=== PATIENT | female | born 1950 | race Caucasian/White ===

== ENCOUNTER 2019-10-11 10:39 | Inpatient (IN) | payer OTHER ==
[2019-10-11] VITALS (12 sets, daily range): BP systolic 115–154; BP diastolic 53–94
[~2019-10-11] VITALS: Ht 165.1 cm; Wt 86.2 kg
--- NOTE | 2019-10-11 11:00 | NUR ---
Normal Saline started at 100 ml/hr per towel hemmer Dr. Bowman.
[2019-10-11] MEDS ORDERED: SODIUM CHLORIDE 0.9% 1000ML 1,000 ML ONE ×3 (11:05→11:23)
--- NOTE | 2019-10-11 11:06 | NUR ---
325MG OF ASPIRIN GIVEN PER DR. COLEMAN
[2019-10-11] MEDS ORDERED: ASPIRIN 81 MG CHEW TAB ONE (11:07)
--- NOTE | 2019-10-11 11:07 | NUR ---
CELL PHONE/GLASSES IN PURSE
--- NOTE | 2019-10-11 11:10 | NUR ---
Blank consent printed and placed on chart
--- NOTE | 2019-10-11 11:10 | NUR ---
clients cell phone and glasses in client purse, personal shoes and clothing placed in belongings bag and sent with patient to laboratory manager.
--- NOTE | 2019-10-11 11:13 | NUR ---
slab polisher RN at bedside
[2019-10-11] MEDS ORDERED: HEPARIN SOD (PORCINE) 1000 UNIT/ML 30ML ONE (11:16)
[2019-10-11] MEDS ORDERED: MIDAZOLAM HCL 2 MG/2 ML VIAL ONE (11:16)
[2019-10-11] MEDS ORDERED: VERAPAMIL HCL 2.5 MG/ML 2 ML VIAL ONE (11:16)
[2019-10-11] MEDS ORDERED: IOPAMIDOL 370 MG/ML 200 ML INFUS..BTL INJ ONE (11:17)
[2019-10-11] MEDS ORDERED: LIDOCAINE HCL 2% LOCAL 20 ML VIAL ONE (11:17)
[2019-10-11] MEDS ORDERED: FENTANYL CITRATE/PF 100MCG/2 ML INJ ONE (11:17)
[2019-10-11] MEDS ORDERED: HEPARIN SOD/SOD CHLORIDE 2,000 ML ONE (11:17)
[2019-10-11 11:18] LABS: BASOPHILS % 0.4 % (0.0-1.0); EOSINOPHILS % 0.4 % (0.0-6.0); HEMATOCRIT 40.2 % (34.2-44.1); HEMOGLOBIN 14.3 g/dL (12.0-16.0); LYMPHOCYTES # (AUTO) 1.6 (1.0-3.2); LYMPHOCYTES % 14.3 % (18.0-39.1); MEAN CORPUSCULAR HEMOGLOBIN 30.2 pg (28-32); MEAN CORPUSCULAR HGB CONC 35.6 g/dL (31-35); MONOCYTES # (AUTO) 0.5 (0.2-0.8); MONOCYTES % 4.4 % (4.4-11.3); NEUTROPHILS # (AUTO) 8.7 (2.1-6.9); NEUTROPHILS % 79.9 % (38.7-80.0); PLATELET COUNT 266 x10e3/uL (140-360); RED BLOOD COUNT 4.73 x10e6/uL (3.6-5.1); RED CELL DISTRIBUTION WIDTH 13.2 % (11.7-14.4)
[2019-10-11] MEDS ORDERED: NITROGLYCERIN/D5W 200 MCG/ML 250 ML ONE (11:18)
[2019-10-11] MEDS ORDERED: SODIUM CHLORIDE 0.9% 50ML 50 ML ONE (11:21)
[2019-10-11] MEDS ORDERED: BIVALRIUDIN 250 MG/VIAL VIAL IV ONE (11:21)
--- NOTE | 2019-10-11 11:32 | Diagnostic Imaging Report ---
EXAMINATION: CHEST SINGLE (PORTABLE) INDICATION: Chest pain COMPARISON: None FINDINGS: LINES/TUBES:EKG leads overlie the chest. LUNGS:The lungs are well-inflated. No focal consolidation or pulmonary edema. PLEURA:No pleural effusion or pneumothorax. MEDIASTINUM:The cardiomediastinal silhouette appears normal in size and shape. BONES/SOFT TISSUES:No acute osseous injury. ABDOMEN:No free air under the diaphragm. IMPRESSION: No focal pneumonia or pulmonary edema. Signed by: Uri Miranda MD on 10/11/2019 11:29 AM
--- NOTE | 2019-10-11 11:44 | NUR ---
pt transported via stretcher to quality assurance lab technician.
[2019-10-11 11:53] LABS: ALANINE AMINOTRANSFERASE 39 IU/L (0-55); ALBUMIN 4.3 g/dL (3.5-5.0); ALBUMIN/GLOBULIN RATIO 1.3 (0.8-2.0); ALKALINE PHOSPHATASE 69 IU/L (40-150); BLOOD UREA NITROGEN 14 mg/dL (7-26); BUN/CREATININE RATIO 16 (6-25); CALCIUM 9.8 mg/dL (8.4-10.2); CARBON DIOXIDE 26 mmol/L (22-29); CHLORIDE 101 mmol/L (98-107); CREATINE KINASE 53 IU/L (29-168); EST GLOMERULAR FILTRATION RATE > 60 ML/MIN (60-); GLUCOSE 264 mg/dL (74-118); SODIUM 137 mmol/L (136-145)
[2019-10-11] MEDS ORDERED: EPTIFIBATIDE 20 ML ONE (12:00)
[2019-10-11] MEDS ORDERED: EPTIFIBATIDE 75mg 100ML 100 ML ONE (12:01)
[2019-10-11] MEDS ORDERED: CLOPIDOGREL BISULFATE 75 MG TAB ONE (12:03)
[2019-10-11] MEDS ORDERED: HYDRALAZINE HCL 20 MG/ML VIAL ONE (12:15)
[2019-10-11] MEDS ORDERED: CEFAZOLIN SOD 2 GM/D5W 50ML 50 ML IV ONE (12:36)
[2019-10-11] MEDS: EPTIFIBATIDE 75mg 100ML 100 ML IV SCH ×2 (13:00→19:09)
[2019-10-11] MEDS ORDERED: METOCLOPRAMIDE HCL 10 MG/2ML VIAL ONE (13:02)
[2019-10-11] MEDS ORDERED: METOCLOPRAMIDE HCL 10 MG/2ML VIAL IV PRN ×2 (14:45→15:00)
[2019-10-11] MEDS ORDERED: DEXTROSE 50% SYRINGE 50 ML IV PRN (14:45)
[2019-10-11] MEDS ORDERED: HYDRALAZINE HCL 20 MG/ML VIAL IV PRN (14:45)
[2019-10-11] MEDS: SODIUM CHLORIDE 0.9% 1000ML 1,000 ML IV SCH ×2 (15:16→20:59)
[2019-10-11] MEDS ORDERED: ASPIRIN 81 MG CHEW TAB PO ONE (15:30)
[2019-10-11] MEDS: ASPIRIN 81 MG ENTERIC COATED PO SCH (15:30)
[2019-10-11] MEDS ORDERED: CLOPIDOGREL BISULFATE 75 MG TAB PO ONE (15:30)
[2019-10-11] MEDS: INSULIN REGULAR, HUMAN 100 UNIT/1 ML 3ML VIAL SQ SCH ×2 (16:45→21:09)
[2019-10-11] MEDS: METOPROLOL TARTRATE 25 MG TAB PO SCH (17:00)
[2019-10-11] MEDS: LOSARTAN POTASSIUM 25 MG TAB PO SCH (17:00)
--- NOTE | 2019-10-11 17:00 | Operative Report ---
DATE OF PROCEDURE: SURGEON: Gely Andres MD TITLE OF THE PROCEDURE: 1. Left cardiac catheterization. 2. PCI and stenting of the LAD diagonal artery. 3. PCI and stenting of the circumflex coronary artery. INDICATIONS: Acute lateral ST-elevation myocardial infarction. TECHNICAL DETAILS: The patient is seen in ER. First EKG done at 10:45. A STEMI called at 11. The patient was taken to the cardiac labor conciliator, was ready at 11:36. The reason for delay because the patient's unknown COVID status and to preparation and having appropriate protective equipment. Case started at 11:36. The patient, after draping procedure, she was given Versed and fentanyl for sedation, local xylocaine for local anesthesia. A 4-Sammarinese sheath was established in place, Ryan left 4 and 3DRC catheter to engage the coronaries. A decision was made to proceed with intervention. The existing 4-Sammarinese sheath was exchanged to 6-Sammarinese sheath. Guiding catheter was XB LAD 3. The diagonal lesion was crossed, ballooned and stented. laborer starch factory table to balloon time only 21 minutes. The balloon time was 11:57. Then, after that stent was placed in diagonal. Attention was shifted to the circumflex, which was very large artery supplying all the lateral wall with the same diagonal. There was critical lesion there and this successfully stented using 3 x 15 Resolute stent up to 15 atmospheres. Repeat angiogram showed excellent results. At that time, we checked ACT. The patient of course was given Angiomax, Integrilin in the usual dosage. ACT was therapeutic. Attention was made to do LV-gram. After the LV-gram, successful closure using VIP closure device was done. In between case, hydralazine given to control blood pressure. RESULTS: A. Coronary angiogram: 1. Left main short, mid 30% ostial lesion. 2. LAD bifid system with LAD and diagonal same size other than maybe LAD is bigger. There is 100% occlusion with just penetrating the lesion. There is 70% at the bifurcation of the LAD at the origin of the diagonal 70% to 80% lesion. 3. Circumflex coronary artery, very large, 30% ostial lesion, 95% body of circumflex giving very large 1st obtuse marginal and then giving 2nd obtuse marginal. 4. Right coronary artery 30% lesions were noted, 60% to 70% lesion of PDA. a. Hemodynamic: Aorta pressure 200/80. LV pressure 200/20. b. Left ventriculogram in the right anterior oblique view showed hypokinetic lateral segments, ejection fraction of 40% to 45%. PCI procedure guiding catheter 6-Sammarinese XB LAD 3, balloon is 2 x 15 balloon, stent 2.25 x 15 for the diagonal lesion prior to intervention at 100% with LILLIE zero following the intervention at 0% residual and LILLIE flow 3. The circumflex lesion 95% before intervention. Following intervention with 3 x 18 Resolute stent up to 15 atmosphere was 0% residual with LILLIE-3 flow. IMPRESSION: Severe two-vessel coronary artery disease with an acute ST-elevation myocardial infarction and severely ischemic, very large lateral wall successfully treated with the followin. PCI and stenting of the large diagonal bifid lesion using a 2 x 15 stent. 2. PCI and stenting of the circumflex coronary artery using 3 x 15 stent with good results. COMPLICATIONS: None. BLOOD LOSS: None. MD ALIYA Olivarez/ALEJA /[id number]
--- NOTE | 2019-10-11 18:10 | Consultation ---
DATE OF CONSULTATION: 10/11/2019 Pulmonary Critical Care Medicine Consult REASON FOR REFERRAL: Critical illness. HISTORY OF PRESENT ILLNESS: Ms. Odell is a pleasant 69-year-old female with critical illness state. The patient is seen and examined in the emergency room. The patient was having some debilitating shortness of breath. She was having some chest pains. Of note, the patient with some history of chest pains in a similar manner before. Usually, the pain will go away upon relaxation. However, today, the pains were worse ever. She came to emergency room. EKG demonstrated some ST elevations and contralateral depressions. The patient went to the emergent heart catheterization lab. The patient had two-vessel coronary artery disease that was noted with 40% to 45% LVEF. The patient proceeded to have two stents placed. The patient comes back to the ICU in critical condition. PAST MEDICAL HISTORY: Diabetes, hypertension, and hyperlipidemia. MEDICATIONS: Medication list per the chart record. Still limited right now. The patient states lot of her medicines run out recently. ALLERGIES: NO KNOWN DRUG ALLERGIES. SOCIAL HISTORY: No smoking. No drinking. No drugs. The patient is retired and she is former teacher. The patient lives with and son, who is 31 years old. has advancing Parkinson and is bedbound. REVIEW OF SYSTEMS: GENERAL: No weight changes. OPHTHALMOLOGIC: No floaters. ENT: No mouth ulcers. ENDOCRINE: No known thyroid disease. PULMONARY: No asthma. CARDIAC: No arrhythmias in the past. GI: No blood in vomiting. : No dysuria. HEMATOLOGIC: No blood dyscrasias. NEUROLOGIC: No seizures. PSYCHIATRIC: No depression. PHYSICAL EXAMINATION: VITAL SIGNS: Afebrile. Vital signs noted and reviewed per the chart record. Blood pressure 120/83. Heart rate 77. HEENT: Normocephalic and atraumatic. NECK: Supple. Throat midline. LUNGS: Bilateral air entry, limited, but clear. CARDIOVASCULAR: S1 and S2. No murmurs, rubs, or gallops. ABDOMEN: Soft and nontender. EXTREMITIES: No clubbing. No cyanosis. There is trace to no edema. INTEGUMENT: No rash. No purpura. The right groin entry site heart catheterization, minimally ecchymosis. LABORATORY DATA: 4.0 potassium, 14 BUN, 0.9 creatinine. 11 white count, 40 hematocrit, 266 platelets. IMPRESSION AND PLAN: 1. Acute ST-elevation myocardial infarction. 2. Postop stay, status post PCI of two-vessel coronary artery disease. 3. Diabetes. 4. Hypertension. 5. Hyperlipidemia. 6. History of medication/treatment nonadherence. 7. Mild acute systolic cardiomyopathy, 40-45% LVEF. 8. Emergency hypertension, 264/120 blood pressure on admit. Get slow steady control of blood pressure, but do not drop too rapidly, noting the patient with very high blood pressure coming. Get hyperglycemic control. Continue Integrilin for short term and follow up again with serial checks. Follow up serial vascular checks. The patient will remain on telemetry in ICU. Continue cardiac medicines per Cardiology. Thank you very much for this consult, Dr. Cunningham. Please call for questions. MD DONOVAN Alvarez/ALEJA /[id number] cc: Clinton Cm
--- NOTE | 2019-10-11 18:45 | Consultation ---
DATE OF CONSULTATION: Cardiac Consultation REASON FOR CONSULTATION: Urgent consultation for possibility of ST-elevation myocardial infarction. HISTORY OF PRESENT ILLNESS: A 69-year-old lady, poorly historian, followed by Dr. Cm, diabetic, hypertensive, does not take any medication. No major surgery. The patient in her usual status of health. Since yesterday, she is having severe chest pain. Today, it was more severe, associated with diaphoresis, nausea, vomiting, typical, acute myocardial infarction type of symptoms. The patient rushed to ER. The ER physician did her EKG. She was suspicious of problems. She called me, I was rounding. I came directly to ER and the patient there in severe pain. Her blood tests being drawn. The patient is extremely hypertensive with blood pressure 190/100. She is diaphoretic, cold, clammy, and she is having severe retrosternal chest pain radiating to her back. We initiated a STEMI call immediately activated. REVIEW OF SYSTEMS: GENERAL: No fever. No chills. No weight loss. No weight gain. HEENT: Blurry vision. PULMONARY AND CARDIAC: Exertional angina-like symptoms, easy fatigue with shortness of breath on exertion over the last few weeks. GI: Bloating, indigestion, nausea, and vomiting. The patient vomited twice before coming to ER. : Incontinence, increased frequency of urination. MUSCULOSKELETAL: Aches and pain. NEUROLOGICAL: Tingling and numbness. ENDOCRINE: The patient is diabetic of many years duration. SOCIAL HISTORY: She is . She is nonsmoker and non-alcohol drinker. HOME MEDICATIONS: The patient does not take any medication. ALLERGIES: NONE. PAST MEDICAL HISTORY: 1. Hypertension. 2. Diabetes mellitus. FAMILY HISTORY: Strongly positive for hypertension, diabetes mellitus, and coronary artery disease. PHYSICAL EXAMINATION: GENERAL: Obese lady, in acute distress. VITAL SIGNS: Blood pressure 190/100, heart rate of 90, respiratory rate 18, in acute distress. NECK: Elevation of jugular venous pulsation. CHEST: Bilateral crackles. HEART: 4th heart sound is audible. ABDOMEN: Soft. Bowel sounds are present. EXTREMITIES: Minimal trace edema. Chronic skin changes. NEUROLOGIC: Awake, alert, and oriented. IMPRESSION AND PLAN: Acute ST-elevation myocardial infarction based on EKG, lab drawn, a STEMI call is activated. MD ALIYA Olivarez/ALEJA /[id number]
[2019-10-11 20:45] LABS: BASOPHILS % 0.2 % (0.0-1.0); HEMATOCRIT 35.5 % (34.2-44.1); HEMOGLOBIN 12.9 g/dL (12.0-16.0); LYMPHOCYTES # (AUTO) 1.7 (1.0-3.2); LYMPHOCYTES % 13.3 % (18.0-39.1); MEAN CORPUSCULAR HEMOGLOBIN 30.6 pg (28-32); MEAN CORPUSCULAR HGB CONC 36.3 g/dL (31-35); MEAN CORPUSCULAR VOLUME 84.1 fL (81-99); MONOCYTES # (AUTO) 0.9 (0.2-0.8); NEUTROPHILS % 79.1 % (38.7-80.0); PLATELET COUNT 276 x10e3/uL (140-360); RED BLOOD COUNT 4.22 x10e6/uL (3.6-5.1); RED CELL DISTRIBUTION WIDTH 13.4 % (11.7-14.4)
[2019-10-11 21:08] LABS: ALANINE AMINOTRANSFERASE 48 IU/L (0-55); ALBUMIN 3.7 g/dL (3.5-5.0); ALBUMIN/GLOBULIN RATIO 1.3 (0.8-2.0); ALKALINE PHOSPHATASE 59 IU/L (40-150); ANION GAP 10.5 mmol/L (8-16); BLOOD UREA NITROGEN 11 mg/dL (7-26); BUN/CREATININE RATIO 15 (6-25); CALCIUM 8.8 mg/dL (8.4-10.2); CARBON DIOXIDE 24 mmol/L (22-29); CHLORIDE 104 mmol/L (98-107); CREATININE, SERUM 0.71 mg/dL (0.57-1.11); EST GLOMERULAR FILTRATION RATE > 60 ML/MIN (60-); GLUCOSE 167 mg/dL (74-118); POTASSIUM 3.5 mmol/L (3.5-5.1); SODIUM 135 mmol/L (136-145)
[2019-10-11] MEDS: ATORVASTATIN 40 MG TAB PO SCH (21:08)
[2019-10-12] VITALS (19 sets, daily range): BP systolic 96–157; BP diastolic 54–133
[2019-10-12 05:39] LABS: BASOPHILS % 0.3 % (0.0-1.0); EOSINOPHILS % 0.4 % (0.0-6.0); HEMOGLOBIN 12.7 g/dL (12.0-16.0); LYMPHOCYTES # (AUTO) 2.2 (1.0-3.2); LYMPHOCYTES % 19.7 % (18.0-39.1); MEAN CORPUSCULAR HEMOGLOBIN 30.2 pg (28-32); MEAN CORPUSCULAR HGB CONC 35.3 g/dL (31-35); MEAN CORPUSCULAR VOLUME 85.5 fL (81-99); MONOCYTES # (AUTO) 0.9 (0.2-0.8); MONOCYTES % 7.7 % (4.4-11.3); NEUTROPHILS % 71.6 % (38.7-80.0); PLATELET COUNT 269 x10e3/uL (140-360); RED BLOOD COUNT 4.21 x10e6/uL (3.6-5.1); RED CELL DISTRIBUTION WIDTH 13.7 % (11.7-14.4)
[2019-10-12 05:59] LABS: ALANINE AMINOTRANSFERASE 40 IU/L (0-55); ALBUMIN 3.5 g/dL (3.5-5.0); ALBUMIN/GLOBULIN RATIO 1.3 (0.8-2.0); ALKALINE PHOSPHATASE 55 IU/L (40-150); ANION GAP 9.4 mmol/L (8-16); BLOOD UREA NITROGEN 10 mg/dL (7-26); BUN/CREATININE RATIO 14 (6-25); CALCIUM 8.3 mg/dL (8.4-10.2); CARBON DIOXIDE 26 mmol/L (22-29); CHLORIDE 108 mmol/L (98-107); CREATININE, SERUM 0.69 mg/dL (0.57-1.11); EST GLOMERULAR FILTRATION RATE > 60 ML/MIN (60-); GLUCOSE 145 mg/dL (74-118); MAGNESIUM 1.7 MG/DL (1.3-2.1); PHOSPHORUS 2.7 MG/DL (2.3-4.7); POTASSIUM 3.4 mmol/L (3.5-5.1); SODIUM 140 mmol/L (136-145)
[2019-10-12 06:25] LABS: CHOL/HDL RATIO 3.3 (3.0-3.6)
--- NOTE | 2019-10-12 06:36 | Diagnostic Imaging Report ---
EXAMINATION: CHEST SINGLE (PORTABLE) INDICATION: CHF. COMPARISON: Chest radiograph 10/11/2019. FINDINGS: LINES/TUBES:EKG leads overlie the chest. LUNGS:The lungs are well-inflated. No focal consolidation or pulmonary edema. Central vascular congestion. PLEURA:No pleural effusion or pneumothorax. MEDIASTINUM:The cardiomediastinal silhouette appears unremarkable. BONES/SOFT TISSUES:No acute osseous injury. ABDOMEN:No free air under the diaphragm. IMPRESSION: Central vascular congestion without pulmonary edema. Signed by: Dr. Carmen Tafoya MD on 10/12/2019 6:32 AM
[2019-10-12] MEDS: INSULIN REGULAR, HUMAN 100 UNIT/1 ML 3ML VIAL SQ SCH ×4 (08:20→21:29)
[2019-10-12] MEDS ORDERED: POTASSIUM CHLORIDE 10MEQ EA PO ONE (09:55)
[2019-10-12] MEDS: ASPIRIN 81 MG ENTERIC COATED PO SCH (10:18)
[2019-10-12] MEDS: CLOPIDOGREL BISULFATE 75 MG TAB PO SCH (10:19)
[2019-10-12] MEDS: METOPROLOL TARTRATE 25 MG TAB PO SCH ×2 (10:25→17:46)
[2019-10-12] MEDS: LOSARTAN POTASSIUM 25 MG TAB PO SCH ×2 (10:25→17:46)
--- NOTE | 2019-10-12 10:33 | History and Physical ---
PRIMARY CARE PHYSICIAN: Dr. Clinton Cm. CONSULTANTS: 1. Dr. Gely Andres. 2. Dr. Aram Bustos, ICU. CHIEF COMPLAINT: ST-elevation myocardial infarction. HISTORY OF PRESENT ILLNESS: The patient is a 69-year-old female, patient of Dr. Clinton Cm with diabetes type 2, hypertension, not taking any medication due to compliance issue, poor historian, came in with severe chest pain and EKG showed consistent with ST-elevation myocardial infarction. The patient subsequently underwent urgent cardiac catheterization. The patient had a left heart catheterization and then subsequent PCI stenting of the LAD, diagonal artery, and CLASS A LINEMAN stenting of the circumflex coronary artery. The patient has following results. Please review the operative note. PAST MEDICAL HISTORY: Diabetes type 2, hypertension, coronary artery disease. PAST SURGICAL HISTORY: Noncontributory. SOCIAL HISTORY: The patient does not smoke or drink alcohol. No regular drug use. She is . FAMILY HISTORY: Positive for hypertension, diabetes type 2, and coronary artery disease. PHYSICAL EXAMINATION: VITAL SIGNS: Temperature is 98, blood pressure 145/58, pulse rate 88, respirations 16. GENERAL: The patient is not in acute distress. HEENT: Normocephalic and atraumatic. Pupils reactive. Anicteric. NECK: Supple grossly. PULMONARY: Diminished breath sounds at bases. CARDIOVASCULAR: S1, S2. Regular rate and rhythm. ABDOMEN: Soft, nontender, non-distention. EXTREMITIES: No cyanosis or edema. NEUROLOGIC: No focal deficit. LABORATORY DATA: Sodium is 140, potassium 3.4, chloride 108, bicarb 26, BUN 10, creatinine 0.7, glucose 145. WBC 11, hemoglobin 12.7, hematocrit 36, and platelets 369. IMPRESSION: 1. ST-elevation myocardial infarction, status post emergent cardiac catheterization with stents to the LAD, diagonal artery and stent to the circumflex coronary artery. 2. Status post cardiac catheterization with results as follows: Left main short, mid 30% ostial lesion. LAD bifid system with LAD and diagonal stents high other than maybe LAD is larger. There is 100% occlusion with the penetration of the lesion. A 70% of the bifurcation of the LAD at origin of the diagonal 70% to 80% lesion. Circumflex coronary artery, very large, 30% ostial lesion, 95% body of the circumflex given very large 1st obtuse marginal and then given 2nd obtuse marginal. 3. Right coronary artery 30% lesion noted, 60% to 70% lesion of the CLASS A LINEMAN. Aortic pressure is 200/80. LV pressure 200/20. Left ventriculogram in the right anterior oblique view showed hypokinetic lateral segment ejection fraction of 40-45%. 4. The impression of the cardiac catheterization shows severe two-vessel coronary artery disease with acute ST-elevation myocardial infarction and severely ischemic very large lateral wall, successfully treated with the following PCI and stenting of the large diagonal bifid lesion using a 2 x 15 stent. PCI and stenting of the circumflex coronary artery using the 3 x 15 stent with good result. 5. Again, please review the operated note as mentioned above and official dictation by Dr. Gely Andres. PLAN: Continue with post stenting PCI care. Maximize medical treatment with hypertensive urgency control and diabetes control along with post stenting treatment as mentioned above. Please review the medication ordered by paint pourer, Dr. Gely Andres. MD SARINA Islas/ALEJA /[id number]
[2019-10-12] MEDS: SODIUM CHLORIDE 0.9% 1000ML 1,000 ML IV SCH (11:00)
[2019-10-12 12:48] LABS: FREE THYROXINE INDEX 2.026 (1.4-3.8)
--- NOTE | 2019-10-12 14:29 | NUR ---
Pulmonary Critical Care Medicine DATE 10/12/2019 SUBJECTIVE: 98% saturation RA FiO2 no chest pain leg/groin ok REVIEW OF SYSTEMS: no bleeding, no nose bleed PHYSICAL EXAMINATION: VITAL SIGNS: Vital signs noted and reviewed per the chart record. HEENT: Normocephalic, atraumatic. NECK: Supple. Throat midline. LUNGS: Bilateral air entry, limited, but clear. CARDIOVASCULAR: S1 and S2. No murmurs, rubs, or gallops. ABDOMEN: Soft and nontender. EXTREMITIES: No clubbing. No cyanosis. no edema. INTEGUMENT: No rash. No purpura. LABORATORY DATA: k 3.4, cr 0.69. wbc 11, hct 36, plt 269 IMPRESSION AND PLAN: 1. Acute ST-elevation myocardial infarction. 2. Postoperative state, s/p PCI of two-vessel coronary artery disease. 3. Diabetes. 4. Hypertension, emergency. 5. Hyperlipidemia. 6. History of medication/treatment nonadherence. 7. Mild acute systolic cardiomyopathy, 40-45% LVEF. Continue steady control of blood pressure, but do not drop too rapidly Intermittent labs PRN, kidney function stable today Continue hyperglycemic control. Optimize cardiac medicines per Cardiology. Replete K Thank you very much for this consult, Dr. Cunningham. Please call for questions.
--- NOTE | 2019-10-12 17:19 | NUR ---
Nutrition Screen Note RD Recommendation for Physician: -Continue current diet as ordered Plan of Care: RD following, monitoring for tolerance and adequacy Nutrition reason for involvement: Nutrition Risk Trigger MST 2 Primary Diagnose(s): chest pain PMH: diabetes, HTN, HLD Ht: 69 in Wt:190 lb BMI: 31.6 kg/m2 IBW:[address] Assessment: (10/12/19) Chart reviewed. Labs and meds reviewed. Pt is a 69 year old female admitted with chest pain and was found to have an ST-elevation myocardial infarction per MD note. Pt reports a good appetite and usually eats most of her meals. It is recorded that pt consumed 100% of breakfast and 75% of dinner yesterday. Pt was unsure of her usual weight or any recent weight changes. No N/V/D/C or chewing/swallowing issues reported. Will continue to monitor. Current Diet: 2000 kcal consistent carbohydrate/cardiac diet Malnutrition Evaluation (10/12/19) The patient does not meet criteria for a specified degree of malnutrition at this time. Will re-evaluate at follow-up as appropriate. Diet Education Needs Assessment: Diet education indicated. RD provided pt with written materials regarding carbohydrate counting, reading the food label, and following a heart healthy diet. Pt was not interested in verbal education and stated she will read the provided materials at a later time Encouraged pt to contact RD if she has questions. Nutrition Care Level: low Signed: Ro Bull, REYNALDO, LD
[2019-10-12 18:11] LABS: THYROID STIMULATING HORMONE 1.12 uIU/mL (0.350-4.940)
--- NOTE | 2019-10-12 19:04 | NUR ---
PT ARRIVED TO UNIT FROM ICU BY WHEELCHAIR, BEDSIDE SHIFT REPORT RECEIVED FROM Misty GRACIA RN. PT IS AAOX3, RR EVEN AND NON-LABORED, ON ROOM AIR. (R) GROIN DRESSING CDI, GROIN SOFT TO PALPATION. NO S/SX OF DISTRESS NOTED. LEFT PT LAYING SEMI FOWLERS IN BED, BED IN LOW LOCKED POSITION, SIDE RAILS UPX2, CALL LIGHT AND PHONE WITHIN REACH.
[2019-10-12] MEDS: ATORVASTATIN 40 MG TAB PO SCH (21:28)
[2019-10-13 04:00] VITALS: BP 133/61
[2019-10-13 05:48] LABS: BASOPHILS % 0.3 % (0.0-1.0); EOSINOPHILS # (AUTO) 0.1 (0.0-0.4); EOSINOPHILS % 1.2 % (0.0-6.0); HEMATOCRIT 34.9 % (34.2-44.1); HEMOGLOBIN 12.1 g/dL (12.0-16.0); LYMPHOCYTES # (AUTO) 2.5 (1.0-3.2); LYMPHOCYTES % 26.5 % (18.0-39.1); MEAN CORPUSCULAR HEMOGLOBIN 30.3 pg (28-32); MEAN CORPUSCULAR HGB CONC 34.7 g/dL (31-35); MEAN CORPUSCULAR VOLUME 87.3 fL (81-99); MONOCYTES # (AUTO) 0.7 (0.2-0.8); NEUTROPHILS # (AUTO) 6.1 (2.1-6.9); NEUTROPHILS % 64.6 % (38.7-80.0); PLATELET COUNT 238 x10e3/uL (140-360); RED CELL DISTRIBUTION WIDTH 13.9 % (11.7-14.4)
[2019-10-13 06:07] LABS: BLOOD UREA NITROGEN 13 mg/dL (7-26); BUN/CREATININE RATIO 20 (6-25); CALCIUM 8.7 mg/dL (8.4-10.2); CARBON DIOXIDE 20 mmol/L (22-29); CHLORIDE 108 mmol/L (98-107); CREATININE, SERUM 0.65 mg/dL (0.57-1.11); EST GLOMERULAR FILTRATION RATE > 60 ML/MIN (60-); GLUCOSE 130 mg/dL (74-118); SODIUM 136 mmol/L (136-145)
--- NOTE | 2019-10-13 07:08 | NUR ---
bedside shift report received from PM nurse. pt in stable condition.
[2019-10-13 08:07] VITALS: BP 133/61
[2019-10-13] MEDS: INSULIN REGULAR, HUMAN 100 UNIT/1 ML 3ML VIAL SQ SCH (08:14)
[2019-10-13 08:35] VITALS: BP 165/67
--- NOTE | 2019-10-13 09:26 | Discharge Summary ---
PRIMARY CARE PHYSICIAN: Dr. Clinton Cm. LEAF STICKER: Gely Andres MD. FINAL DIAGNOSES: 1. Acute lateral ST-elevation myocardial infarction. 2. Status post left heart catheterization, percutaneous coronary intervention and stenting of the left anterior descending, diagonal artery, and percutaneous coronary intervention and stenting of the circumflex coronary artery. Procedure was done on October 11, 2019. SUMMARY: The patient is a 69-year-old female with multiple risk factors, came in with acute lateral ST-elevation myocardial infarction and the patient underwent cardiac catheterization same day, stent to the LAD, diagonal artery, and stent to the circumflex coronary artery. The patient is otherwise stable. She will go home today. Discharged home with medication: 1. Lipitor 40 mg at bedtime. 2. Metoprolol 25 mg b.i.d. 3. Plavix 75 mg daily. 4. Losartan 50 mg b.i.d. The patient is stable and discharged home. Follow up with Dr. Gely Andres and Dr. Clinton Cm within a week. MD SARINA Islas/MODL /[id number]
[2019-10-13] MEDS: LOSARTAN POTASSIUM 25 MG TAB PO SCH (09:40)
[2019-10-13] MEDS: ASPIRIN 81 MG ENTERIC COATED PO SCH (09:40)
[2019-10-13] MEDS: METOPROLOL TARTRATE 25 MG TAB PO SCH (09:41)
[2019-10-13] MEDS: CLOPIDOGREL BISULFATE 75 MG TAB PO SCH (09:42)
[2019-10-13] MEDS ORDERED: PLAVIX75 MG PO (11:07)
[2019-10-13] MEDS ORDERED: ATORVASTATIN CA20 MG PO (11:07)
[2019-10-13] MEDS ORDERED: LOSARTAN POTAS100 MG PO (11:08)
[2019-10-13] MEDS ORDERED: METOPROLOL TART25 MG PO (11:08)
== END 2019-10-13 12:16 | disposition home or self-care (01) | DRG 247 ==
LOC: ER 10:39 → ICU 14:16 → MED/SURG 10-12 18:17 → ICU 10-12 18:21 → MED/SURG 10-12 18:57
PROVIDERS: ADMIT Internal Medicine; ATTEND Internal Medicine
PROC: 027135Z Dilation of Coronary Artery, Two Arteries with Two Drug-eluting Intraluminal Devices, Percutaneous Approach (ICD-10-PCS; principal; 2019-10-11)
PROC: 4A023N7 Measurement of Cardiac Sampling and Pressure, Left Heart, Percutaneous Approach (ICD-10-PCS; 2019-10-11)
PROC: B2111ZZ Fluoroscopy of Multiple Coronary Arteries using Low Osmolar Contrast (ICD-10-PCS; 2019-10-11)
PROC: B2151ZZ Fluoroscopy of Left Heart using Low Osmolar Contrast (ICD-10-PCS; 2019-10-11)
DX: I21.29 ST elevation (STEMI) myocardial infarction involving other sites (principal); I16.1 Hypertensive emergency; I25.10 Atherosclerotic heart disease of native coronary artery without angina pectoris; E11.9 Type 2 diabetes mellitus without complications; E78.5 Hyperlipidemia, unspecified; E66.9 Obesity, unspecified; Z68.31 Body mass index [BMI] 31.0-31.9, adult
CPT/HCPCS: 36415; 71045; 80048; 80053; 80061; 82550; 82553; 82948; 83036; 83735; 84100; 84436; 84443; 84479; 84484; 85025; 92920; 92928; 92929; 93005; 93306; 93458; 99152; 99153; 99284; C1725; C1766; C1876; C1887; J0360; J0583; J0690; J1327; J1644; J1817; J2001; J2250; J2765; J3010; J7030; Q9967